=== PATIENT | female | born 1975 | race Caucasian/White ===

== ENCOUNTER 2016-12-28 03:00 | Emergency (ER) | payer OTHER ==
--- NOTE | 2016-12-28 04:23 | ED CLINICAL REPORT ---
Clinical Report - Physicians/Mid Levels [facility] [address] [place] [address] 12/28/2016 3:00 Patient: ABEBE RYDER Time Seen: 03:14. Arrived- By private vehicle. Historian- patient. HISTORY OF PRESENT ILLNESS Chief Complaint: COUGH and FEVER. This started about 3 days ago and is still present. It was gradual in onset and has been waxing/waning. The illness is described as moderate. The patient has had a mild cough . No blood tinged sputum or frankly bloody sputum, nasal congestion, sinus drainage, fever and muscle aches. She has had a nasal discharge. No difficulty breathing or hoarseness. She has had a mild sore throat . It has been associated with pain upon swallowing. No difficulty swallowing. Additional history - The patient has had contact with a sick individual. (influenza epidemic). (Pt states that she has had "low potassium" before and wants this checked.). Similar symptoms previously: Recent medical care: Not recently seen/assessed. REVIEW OF SYSTEMS Last normal menstrual period- Dec 13. Para 4. She has had a mild headache. The headache has been similar to previous ones. No nausea, vomiting, pedal edema, calf pain or difficulty with urination. No skin rash. She has had mild diarrhea. This has occurred several times. It has been watery. No bloody diarrhea. Denies current . All systems otherwise negative, except as recorded above. PAST HISTORY Hypertension. PCP: Dr Floyd. Bronchitis. Hypokalemia (for unclear reasons). Fracture (Rt "below the knee" fracture.). Surgeries: . Tonsillectomy. Medications: None. Allergies: No Known Drug Allergy. SOCIAL HISTORY Never smoker. No alcohol use or drug use. Is a local resident. ADDITIONAL NOTES The nursing notes have been reviewed. PHYSICAL EXAM Vital Signs: 12/28/2016 03:06 BP: 116/71. HR: 110. RR: 20. O2 saturation: 99%. Temp: 100.1 F. Pain level now: 7/10. Appearance: Alert. Patient in mild distress. Eyes: Eyes normal inspection. No scleral icterus. ENT: Nasal discharge present. Mild generalized pharyngeal erythema. No right tonsillar exudate, right tonsillar abscess, right tonsillar swelling, left tonsillar exudate, left tonsillar abscess or left tonsillar swelling. Pharynx normal. No mouth ulcerations, tonsillar exudate, peritonsillar mass or muffled or hoarse voice. Neck: Normal inspection. Neck supple. No JVD. No meningeal signs. No neck stiffness or nuchal rigidity. Negative Brudzinski's sign and Kernig's sign. CVS: Tachycardia. Heart sounds normal. Pulses normal. Respiratory: No respiratory distress. Breath sounds normal. No rales, rhonchi, wheezes or stridor. Abdomen: Soft and nontender. Back: Normal inspection. Skin: Skin warm and dry. Normal skin color. No rash. No petechiae. Normal skin turgor. Extremities: Extremities exhibit normal ROM. No calf tenderness. No lower extremity edema. Neuro: Oriented X 3. No motor deficit. LABS, X-RAYS, AND EKG Chest X-ray: No acute disease. Normal lung markings present. Normal heart size. Mediastinum normal. Great vessels normal. No infiltrate. Views: PA and lateral. Technique: good. The X-rays were interpreted contemporaneously by me. Laboratory Tests: BMP: (IBRAHIMA: 12/28/2016 03:40) ( MsgRcvd 12/28/2016 03:56) Final results Test Result Flag Units (Reference) GLUCOSE 128 H mg/dL (70-110) BUN 5 L mg/dL (7-18) CREATININE 0.8 mg/dL (0.6-1.3) Estimated GFR >60 mL/min Estimated GFR- >60 mL/min Note: Persistent reduction over 3 months in eGFR<60 mL/min/1.73 m2 defines CKD. Patients with eGFR values>=60 mL/min/1.73 m2 may also have CKD if evidence ofpersistent proteinuria. Additional information may be foundat www.kidney.org. SODIUM 136 mmol/L (136-145) POTASSIUM 3.7 mmol/L (3.5-5.1) CHLORIDE 101 mmol/L (98-107) CARBON DIOXIDE 23 mmol/L (21-32) CALCIUM 9.0 mg/dL (8.5-10.1) Culture, Strep Screen: (IBRAHIMA: 12/28/2016 03:20) ( MsgRcvd 12/28/2016 03:39) Final results Test Result Flag Units (Reference) RAPID STREP SCREEN - THROAT CALLED TO: -- DATE: 12/28/16 NEGATIVE SCREEN: RAPID STREP SCREEN NEGATIVE; CONFIRMATION TO FOLLOW Rapid Influenza Screen: (IBRAHIMA: 12/28/2016 03:20) ( MsgRcvd 12/28/2016 03:43) Final results SPECIMEN DESCRIPTION: BONDERITE OPERATOR SWAB Test Result Flag Units (Reference) RAPID INFLUENZA SCREEN CALLED TO: NICOLE ED -- DATE: 12/28/16 INFLUENZA A: NEGATIVE SCREEN FOR INFLUENZA A INFLUENZA B: POSITIVE SCREEN FOR INFLUENZA B . HCG: Urine HCG negative Pulse Oximetry: 12/28/2016 03:06 O2 saturation: 99%. (FIO2 - room air). Interpretation: normal. PROGRESS AND PROCEDURES Course of Care: Normal Saline 1 liter IVPB given. Toradol 15 mg IVP given. All c/w influenza - +flu screen. Symptoms present for over 3 days - Tamiflu not indicated. Patient/family counseled. Old ED records reviewed. Disposition: Discharged. Condition: stable and improved. CLINICAL IMPRESSION Diarrhea Influenza type B with upper respiratory infection and bronchitis. INSTRUCTIONS Do not work for three days. Drink plenty of fluids. No alcohol until released. Warnings: Further evaluation is necessary in order to recheck abnormal lab, obtain test results, conduct further tests and assess the possibility of serious illness. It is very important to follow up with a physician. GENERAL WARNINGS: Return or contact your physician immediately if your condition worsens or changes unexpectedly, if not improving as expected, or if other problems arise. OTC Medications: Acetaminophen (available over the counter): take according to label instructions. Afrin nasal spray (Available over the counter): Take according to label instructions. Motrin (available over the counter): take according to label instructions. Follow-up with: Rolly Floyd MD, [facility], , [facility], [address] [place], [place] [id number] Follow up in two days. (Electronically signed by Douglas Allan DO 12/28/2016 6:23)
--- NOTE | 2016-12-28 04:23 | ED ORDER SUMMARY ---
..... Patient: ABEBE RYDER OrderSheet [facility] VisitID: [id number] [address] [place] [address] 41y, F Registration Date/Time: 12/28/2016 ORDER SHEET Weight: 90.7 kg (estimated) Allergies: No Known Drug Allergy GENERAL ORDERS: Rapid Influenza Screen (Nasal Pharyngeal) (DATA NETWORK ARCHITECT swab) Urgent (03:16 12/28/2016 [facility]) (Ack 3:19 Budegekimana) (3:26 HKone R.N.) BMP Urgent (03:26 12/28/2016 [facility]) (Ack 3:27 Brianekimana) (4:29 CausePlay ER Smooth Plater) Culture, Strep Screen Urgent (03:26 12/28/2016 [facility]) (3:26 HKone R.N.) Chest 2V Urgent (03:27 12/28/2016 [facility]) (Ack 3:28 Gladis) (3:48 CausePlay ER Smooth Plater) POC - Urine hCG (04:27 12/28/2016 [facility] ) (4:54 HKone R.N.) MEDICATION ORDERS: IV FLUIDS: IV NS : initial bolus 1000 mL (1000 mL/hr), then TKO - (NOW) (03:25 12/28/2016 [facility]) (Ack 3:27 HKone R.N.) (4:18 HKone R.N.) Toradol IV 15 mg (NOW) (04:05 12/28/2016 [facility]) (Ack 4:11 HKone R.N.) (4:17 HKone R.N.) ORDER SHEET NOTES: [Electronically signed by Dorothy Stewart R.N. (05:12 12/28/2016)] [Electronically signed by Douglas Allan DO (06:23 12/28/2016)] [Electronically locked/signed by Dorothy Stewart R.N. (05:12 12/28/2016)]
--- NOTE | 2016-12-28 04:23 | ED NURSING NOTES ---
Clinical Report - Nurses [facility] [address] [place] [address] 12/28/2016 3:00 Patient: ABEBE RYDER TRIAGE Triage time 0306. Acuity: LEVEL 4. Chief Complaint: "FLU", FEVER, COUGH and BODY ACHES. --03:12 Dorothy Stewart R.N. 03:06 12/28/16. BP: 116/71. HR: 110. RR: 20 (unlabored). O2 saturation: 99% on room air. Temp: 100.1 F (oral). Pain level now: 05/18. --03:12 Dorothy Stewart R.N. CARLINE COMA SCORE: [place] Coma Scale: 15- eyes open spontaneously (4); best verbal response- oriented x 4 (5); best motor response- obeys commands (6). --03:13 Dorothy Stewart R.N. Weight: 90.7 kg estimated. Height/Length: 66 inches Per Patient. BMI: 32.3. --03:06 Dorothy Stewart R.N. Medications None. --03:07 Dorothy Stewart R.N. Medication/allergy information source: the patient. --03:12 Dorothy Stewart R.N. Allergies No Known Drug Allergy. --03:07 Dorothy Stweart R.N. History Arrived by private vehicle. Historian: patient. Unaccompanied. Primary physician (Mariel). ( pt c/o cough, flu-like symptoms x 3 days.). Onset. (3 days ago). 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 PAST MEDICAL HX: Last normal menstrual period- Dec. Denies current . SOCIAL HX: Never smoker. No alcohol use or drug use. ABUSE ASSESSMENT: No report of abuse. FALL RISK ASSESSMENT: Fall risk assessment completed. No fall risk identified. NUTRITIONAL RISK ASSESSMENT: The nutritional risk assessment revealed no deficiencies. FUNCTIONAL ASSESSMENT: Functional assessment: no impairments noted. LEARNING NEEDS ASSESSMENT: The learning needs assessment revealed no barriers. SKIN INTEGRITY ASSESSMENT: Skin integrity risk assessment completed. No skin integrity risk identified. --03:12 Dorothy Stewart R.N. PROBLEMS: Bronchitis. Rt below knee fracture. Hypertension. --03:08 Dorothy Stewart R.N. ADDITIONAL SURGERIES: . Tonsillectomy. --03:08 Dorothy Stewart R.N. Interventions ID band on patient. To treatment room. --03:12 Dorothy Stewart R.N. PHYSICAL ASSESSMENT 03:15. Ambulatory to room. GENERAL / NEURO / PSYCH: Alert. Oriented X 4. Appears in no acute distress. HEENT: Pupils equal, round and reactive to light. Mucous membranes are pink. RESPIRATORY: Respirations not labored. Cough. SKIN: Skin intact. Skin is dry. Hot skin. Normal skin turgor. --04:30 Dorothy Stewart R.N. NURSING PROGRESS NOTES Patient gowned. Head of bed elevated. Two patient identifiers checked. Call light placed in reach. Side rails up x 1. Bed placed in lowest position. Brakes of bed on. Patient ready for evaluation. --03:13 Dorothy Stewart R.N. ED physician notified. Notified (FLU B +). --03:44 Yusuf Anglin, ER Label Tacker 03:30 12/28/2016 Site #2 started via IV in the right antecubital space with an 20g angiocath; one attempt. --04:17 Dorothy Stewart R.N. 03:40 12/28/2016 Site #1 started via IV in the left antecubital space with an 20g angiocath, with aseptic technique and good blood return; one attempt. Blood drawn: rainbow set. Labeled in the presence of the patient and sent to the lab. Saline lock flushed with 10 mL saline. --03:52 Dorothy Stewart R.N. 03:55 12/28/2016 Site #1 removed. Bandage applied (IV site infiltrated when attempting to start IV fluids.). --03:55 Dorothy Stewart R.N. 03:56 12/28/2016 Started bag #1 1000 mL IV Fluids IV NS (Saline); at 999 mL/hr over 1 hour(s) via site #2 via IV pump. Allergies verified and confirmed 5 rights. IV patency established. IV site checked: no pain, redness, or swelling. IV flushed thoroughly pre- and post-medication administration. --04:18 Dorothy Stewart R.N. 04:17 12/28/2016 Toradol IVP 15 mg given over 1 minute(s) via site #2. Allergies verified and confirmed 5 rights. IV patency established. IV site checked: no pain, redness, or swelling. IV flushed thoroughly pre- and post-medication administration. IVP given by RN. --04:17 Dorothy Stewart R.N. urine test done at bedside - pt is negative. reported to MD. --04:57 Dorothy Stewart R.N. 04:56 12/28/2016 IV Fluids IV NS Discontinued: bag #1 completed upon discharge. Total amount infused: 1000 ml mL. IV patency established. IV site checked: no pain, redness, or swelling. IV flushed thoroughly. --05:12 Dorothy Stewart R.N. DISPOSITION / DISCHARGE Departure time: 0505. Condition at departure: improved. No learning barriers present. Discharge instructions provided and reviewed with the patient. Reviewed medication(s). Prescription(s) given to the patient (Afrin, Motrin, Tylenol). Patient verbalized understanding. Written instructions provided in [place]. The patient was discharged by the physician. She was discharged home and unaccompanied at time of discharge. She left the Emergency Department ambulatory and via private vehicle. Patient driving. Medication list reviewed and validated with the patient. --05:11 Dorothy Stewart R.N. 05:05 12/28/16. BP: 116/72. HR: 89. RR: 18 (unlabored). O2 saturation: 97% on room air. Temp: 99.6 F (oral). Pain level now: 03/18. --05:11 Dorothy Stewart R.N. 05:05 12/28/2016 Site #2 removed upon discharge. Bandage applied. --05:11 Dorothy Stewart R.N. Locked/Released at 12/28/2016 5:12 by Dorothy Stewart R.N.
--- NOTE | 2016-12-28 04:23 | ED CLINICAL REPORT ---
Clinical Report - Physicians/Mid Levels [facility] [address] [place] [address] 12/28/2016 3:00 Patient: ABEBE RYDER Time Seen: 03:14. Arrived- By private vehicle. Historian- patient. HISTORY OF PRESENT ILLNESS Chief Complaint: COUGH and FEVER. This started about 3 days ago and is still present. It was gradual in onset and has been waxing/waning. The illness is described as moderate. The patient has had a mild cough . No blood tinged sputum or frankly bloody sputum, nasal congestion, sinus drainage, fever and muscle aches. She has had a nasal discharge. No difficulty breathing or hoarseness. She has had a mild sore throat . It has been associated with pain upon swallowing. No difficulty swallowing. Additional history - The patient has had contact with a sick individual. (influenza epidemic). (Pt states that she has had "low potassium" before and wants this checked.). Similar symptoms previously: Recent medical care: Not recently seen/assessed. REVIEW OF SYSTEMS Last normal menstrual period- Dec 13. Para 4. She has had a mild headache. The headache has been similar to previous ones. No nausea, vomiting, pedal edema, calf pain or difficulty with urination. No skin rash. She has had mild diarrhea. This has occurred several times. It has been watery. No bloody diarrhea. Denies current . All systems otherwise negative, except as recorded above. PAST HISTORY Hypertension. PCP: Dr Floyd. Bronchitis. Hypokalemia (for unclear reasons). Fracture (Rt "below the knee" fracture.). Surgeries: . Tonsillectomy. Medications: None. Allergies: No Known Drug Allergy. SOCIAL HISTORY Never smoker. No alcohol use or drug use. Is a local resident. ADDITIONAL NOTES The nursing notes have been reviewed. PHYSICAL EXAM Vital Signs: 12/28/2016 03:06 BP: 116/71. HR: 110. RR: 20. O2 saturation: 99%. Temp: 100.1 F. Pain level now: 7/10. Appearance: Alert. Patient in mild distress. Eyes: Eyes normal inspection. No scleral icterus. ENT: Nasal discharge present. Mild generalized pharyngeal erythema. No right tonsillar exudate, right tonsillar abscess, right tonsillar swelling, left tonsillar exudate, left tonsillar abscess or left tonsillar swelling. Pharynx normal. No mouth ulcerations, tonsillar exudate, peritonsillar mass or muffled or hoarse voice. Neck: Normal inspection. Neck supple. No JVD. No meningeal signs. No neck stiffness or nuchal rigidity. Negative Brudzinski's sign and Kernig's sign. CVS: Tachycardia. Heart sounds normal. Pulses normal. Respiratory: No respiratory distress. Breath sounds normal. No rales, rhonchi, wheezes or stridor. Abdomen: Soft and nontender. Back: Normal inspection. Skin: Skin warm and dry. Normal skin color. No rash. No petechiae. Normal skin turgor. Extremities: Extremities exhibit normal ROM. No calf tenderness. No lower extremity edema. Neuro: Oriented X 3. No motor deficit. LABS, X-RAYS, AND EKG Chest X-ray: No acute disease. Normal lung markings present. Normal heart size. Mediastinum normal. Great vessels normal. No infiltrate. Views: PA and lateral. Technique: good. The X-rays were interpreted contemporaneously by me. Laboratory Tests: BMP: (IBRAHIMA: 12/28/2016 03:40) ( MsgRcvd 12/28/2016 03:56) Final results Test Result Flag Units (Reference) GLUCOSE 128 H mg/dL (70-110) BUN 5 L mg/dL (7-18) CREATININE 0.8 mg/dL (0.6-1.3) Estimated GFR >60 mL/min Estimated GFR- >60 mL/min Note: Persistent reduction over 3 months in eGFR<60 mL/min/1.73 m2 defines CKD. Patients with eGFR values>=60 mL/min/1.73 m2 may also have CKD if evidence ofpersistent proteinuria. Additional information may be foundat www.kidney.org. SODIUM 136 mmol/L (136-145) POTASSIUM 3.7 mmol/L (3.5-5.1) CHLORIDE 101 mmol/L (98-107) CARBON DIOXIDE 23 mmol/L (21-32) CALCIUM 9.0 mg/dL (8.5-10.1) Culture, Strep Screen: (IBRAHIMA: 12/28/2016 03:20) ( MsgRcvd 12/28/2016 03:39) Final results Test Result Flag Units (Reference) RAPID STREP SCREEN - THROAT CALLED TO: -- DATE: 12/28/16 NEGATIVE SCREEN: RAPID STREP SCREEN NEGATIVE; CONFIRMATION TO FOLLOW Rapid Influenza Screen: (IBRAHIMA: 12/28/2016 03:20) ( MsgRcvd 12/28/2016 03:43) Final results SPECIMEN DESCRIPTION: SWITCH OPERATOR SWAB Test Result Flag Units (Reference) RAPID INFLUENZA SCREEN CALLED TO: NICOLE ED -- DATE: 12/28/16 INFLUENZA A: NEGATIVE SCREEN FOR INFLUENZA A INFLUENZA B: POSITIVE SCREEN FOR INFLUENZA B . HCG: Urine HCG negative Pulse Oximetry: 12/28/2016 03:06 O2 saturation: 99%. (FIO2 - room air). Interpretation: normal. PROGRESS AND PROCEDURES Course of Care: Normal Saline 1 liter IVPB given. Toradol 15 mg IVP given. All c/w influenza - +flu screen. Symptoms present for over 3 days - Tamiflu not indicated. Patient/family counseled. Old ED records reviewed. Disposition: Discharged. Condition: stable and improved. CLINICAL IMPRESSION Diarrhea Influenza type B with upper respiratory infection and bronchitis. INSTRUCTIONS Do not work for three days. Drink plenty of fluids. No alcohol until released. Warnings: Further evaluation is necessary in order to recheck abnormal lab, obtain test results, conduct further tests and assess the possibility of serious illness. It is very important to follow up with a physician. GENERAL WARNINGS: Return or contact your physician immediately if your condition worsens or changes unexpectedly, if not improving as expected, or if other problems arise. OTC Medications: Acetaminophen (available over the counter): take according to label instructions. Afrin nasal spray (Available over the counter): Take according to label instructions. Motrin (available over the counter): take according to label instructions. Follow-up with: Rolly Floyd MD, [facility], , [facility], [address] [place], [place] [id number] Follow up in two days. (Electronically signed by Douglas Allan DO 12/28/2016 6:23)
--- NOTE | 2016-12-28 04:23 | ED NURSING NOTES ---
Clinical Report - Nurses [facility] [address] [place] [address] 12/28/2016 3:00 Patient: ABEBE RYDER TRIAGE Triage time 0306. Acuity: LEVEL 4. Chief Complaint: "FLU", FEVER, COUGH and BODY ACHES. --03:12 Dorothy Stewart R.N. 03:06 12/28/16. BP: 116/71. HR: 110. RR: 20 (unlabored). O2 saturation: 99% on room air. Temp: 100.1 F (oral). Pain level now: 05/18. --03:12 Dorothy Stewart R.N. CARLINE COMA SCORE: [place] Coma Scale: 15- eyes open spontaneously (4); best verbal response- oriented x 4 (5); best motor response- obeys commands (6). --03:13 Dorothy Stewart R.N. Weight: 90.7 kg estimated. Height/Length: 66 inches Per Patient. BMI: 32.3. --03:06 Dorothy Stewart R.N. Medications None. --03:07 Dorothy Stewart R.N. Medication/allergy information source: the patient. --03:12 Dorothy Stewart R.N. Allergies No Known Drug Allergy. --03:07 Dorothy Stewart R.N. History Arrived by private vehicle. Historian: patient. Unaccompanied. Primary physician (Mariel). ( pt c/o cough, flu-like symptoms x 3 days.). Onset. (3 days ago). 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 PAST MEDICAL HX: Last normal menstrual period- Dec. Denies current . SOCIAL HX: Never smoker. No alcohol use or drug use. ABUSE ASSESSMENT: No report of abuse. FALL RISK ASSESSMENT: Fall risk assessment completed. No fall risk identified. NUTRITIONAL RISK ASSESSMENT: The nutritional risk assessment revealed no deficiencies. FUNCTIONAL ASSESSMENT: Functional assessment: no impairments noted. LEARNING NEEDS ASSESSMENT: The learning needs assessment revealed no barriers. SKIN INTEGRITY ASSESSMENT: Skin integrity risk assessment completed. No skin integrity risk identified. --03:12 Dorothy Stewart R.N. PROBLEMS: Bronchitis. Rt below knee fracture. Hypertension. --03:08 Dorothy Stewart R.N. ADDITIONAL SURGERIES: . Tonsillectomy. --03:08 Dorothy Stewart R.N. Interventions ID band on patient. To treatment room. --03:12 Dorothy Stewart R.N. PHYSICAL ASSESSMENT 03:15. Ambulatory to room. GENERAL / NEURO / PSYCH: Alert. Oriented X 4. Appears in no acute distress. HEENT: Pupils equal, round and reactive to light. Mucous membranes are pink. RESPIRATORY: Respirations not labored. Cough. SKIN: Skin intact. Skin is dry. Hot skin. Normal skin turgor. --04:30 Dorothy Stewart R.N. NURSING PROGRESS NOTES Patient gowned. Head of bed elevated. Two patient identifiers checked. Call light placed in reach. Side rails up x 1. Bed placed in lowest position. Brakes of bed on. Patient ready for evaluation. --03:13 Dorothy Stewart R.N. ED physician notified. Notified (FLU B +). --03:44 Yusuf Anglin, ER Pattern Setter 03:30 12/28/2016 Site #2 started via IV in the right antecubital space with an 20g angiocath; one attempt. --04:17 Dorothy Stewart R.N. 03:40 12/28/2016 Site #1 started via IV in the left antecubital space with an 20g angiocath, with aseptic technique and good blood return; one attempt. Blood drawn: rainbow set. Labeled in the presence of the patient and sent to the lab. Saline lock flushed with 10 mL saline. --03:52 Dorothy Stewart R.N. 03:55 12/28/2016 Site #1 removed. Bandage applied (IV site infiltrated when attempting to start IV fluids.). --03:55 Dorothy Stewart R.N. 03:56 12/28/2016 Started bag #1 1000 mL IV Fluids IV NS (Saline); at 999 mL/hr over 1 hour(s) via site #2 via IV pump. Allergies verified and confirmed 5 rights. IV patency established. IV site checked: no pain, redness, or swelling. IV flushed thoroughly pre- and post-medication administration. --04:18 Dorothy Stewart R.N. 04:17 12/28/2016 Toradol IVP 15 mg given over 1 minute(s) via site #2. Allergies verified and confirmed 5 rights. IV patency established. IV site checked: no pain, redness, or swelling. IV flushed thoroughly pre- and post-medication administration. IVP given by RN. --04:17 Dorothy Stewart R.N. urine test done at bedside - pt is negative. reported to MD. --04:57 Dorothy Stewart R.N. 04:56 12/28/2016 IV Fluids IV NS Discontinued: bag #1 completed upon discharge. Total amount infused: 1000 ml mL. IV patency established. IV site checked: no pain, redness, or swelling. IV flushed thoroughly. --05:12 Dorothy Stewart R.N. DISPOSITION / DISCHARGE Departure time: 0505. Condition at departure: improved. No learning barriers present. Discharge instructions provided and reviewed with the patient. Reviewed medication(s). Prescription(s) given to the patient (Afrin, Motrin, Tylenol). Patient verbalized understanding. Written instructions provided in Dutch. The patient was discharged by the physician. She was discharged home and unaccompanied at time of discharge. She left the Emergency Department ambulatory and via private vehicle. Patient driving. Medication list reviewed and validated with the patient. --05:11 Dorothy Stewart R.N. 05:05 12/28/16. BP: 116/72. HR: 89. RR: 18 (unlabored). O2 saturation: 97% on room air. Temp: 99.6 F (oral). Pain level now: 03/18. --05:11 Dorothy Stewart R.N. 05:05 12/28/2016 Site #2 removed upon discharge. Bandage applied. --05:11 Dorothy Stewart R.N. Locked/Released at 12/28/2016 5:12 by Dorothy Stewart R.N.
--- NOTE | 2016-12-28 04:23 | ED ORDER SUMMARY ---
..... Patient: ABEBE RYDER OrderSheet [facility] VisitID: [id number] [address] [place] [address] 41y, F Registration Date/Time: 12/28/2016 ORDER SHEET Weight: 90.7 kg (estimated) Allergies: No Known Drug Allergy GENERAL ORDERS: Rapid Influenza Screen (Nasal Pharyngeal) (HATCH TENDER swab) Urgent (03:16 12/28/2016 [facility]) (Ack 3:19 Budegekimana) (3:26 HKone R.N.) BMP Urgent (03:26 12/28/2016 [facility]) (Ack 3:27 Brianekimana) (4:29 [facility]) Culture, Strep Screen Urgent (03:26 12/28/2016 [facility]) (3:26 HKone R.N.) Chest 2V Urgent (03:27 12/28/2016 [facility]) (Ack 3:28 Gladis) (3:48 [facility]) POC - [facility]rine hCG [facility]04[facility]27 [facility] (4:54 HKone R.N.) MEDICATION ORDERS: IV FLUIDS: IV NS : initial bolus 1000 mL (1000 mL/hr), then TKO - (NOW) (03:25 12/28/2016 [facility]) (Ack 3:27 HKone R.N.) (4:18 HKone R.N.) Toradol IV 15 mg (NOW) (04:05 12/28/2016 [facility]) (Ack 4:11 HKone R.N.) (4:17 HKone R.N.) ORDER SHEET NOTES: [Electronically signed by Dorothy Stewart R.N. (05:12 12/28/2016)] [Electronically signed by Douglas Allan DO (06:23 12/28/2016)] [Electronically locked/signed by Dorothy Stewart R.N. (05:12 12/28/2016)]
--- NOTE | 2016-12-28 06:24 | ED MED RECONCILIATION SUMMARY ---
Patient: ABEBE RYDER Medication Reconciliation Report [facility] VisitID: [id number] [address] [place] [address] 41y, F Registration Date/Time: 12/28/2016 Weight: 90.7 kg Height/Length: 66 in. BMI: 32.3 ALLERGIES: No Known Drug Allergy The patient's Home Medications are listed below: NONE. The source(s) of the original Home Medication information: patient The following Medications were given to the patient in the Emergency Department: Toradol [IVP] IVP 15 mg, administered: 12/28/2016 4:17:00 AM IV NS IV Fluids bolus 0, then 999 mL/hr, administered: 12/28/2016 3:56:00 AM The following Medications were prescribed to the patient: Acetaminophen (available over the counter): take according to label instructions. -- Douglas Allan DO Afrin nasal spray (Available over the counter): Take according to label instructions. -- Douglas Allan DO Motrin (available over the counter): take according to label instructions. -- Douglas Allan DO
--- NOTE | 2016-12-28 06:24 | ED MAR SUMMARY ---
..... Medication Administration Record [facility] [address] [place] [address] Patient: ABEBE RYDER Visit ID: [id number] 41y, F Weight: 90.7 kg Height/Length: 66 in BMI: 32.3 ALLERGIES: No Known Drug Allergy Start 03:56 12/28/2016 Dorothy Stewart R.N., Stop 04:56 12/28/2016 Dorothy Stewart R.N. Medication Administered: IV NS (SALINE), Dose: IV Fluids over 1 hour(s), Rate: 999 mL/hr, Dispensed: 1000 mL bag, Site: #2 right AC. Medication Ordered: IV NS : initial bolus 1000 mL (1000 mL/hr), then TKO - (NOW). Given 04:17 12/28/2016 Dorothy Stewart RErickN. Medication Administered: TORADOL [IVP], Dose: 15 mg IVP over 1 minute(s), Site: #2 right AC. Medication Ordered: Toradol IV 15 mg (NOW).
--- NOTE | 2016-12-28 06:24 | ED DISCHARGE INSTRUCTIONS ---
Patient: ABEBE RYDER General Instructions [facility] VisitID: [id number] [address] [place] [address] 41y, F Registration Date/Time: 12/28/2016 Diarrhea Influenza type B with upper respiratory infection and bronchitis. INSTRUCTIONS Do not work for three days. Drink plenty of fluids. No alcohol until released. Warnings: Further evaluation is necessary in order to recheck abnormal lab, obtain test results, conduct further tests and assess the possibility of serious illness. It is very important to follow up with a physician. GENERAL WARNINGS: Return or contact your physician immediately if your condition worsens or changes unexpectedly, if not improving as expected, or if other problems arise. OTC Medications: Acetaminophen (available over the counter): take according to label instructions. Afrin nasal spray (Available over the counter): Take according to label instructions. Motrin (available over the counter): take according to label instructions. Follow-up with: Rolly Floyd MD, [facility], , [facility], [address] [place] [address] Follow up in two days. ADDITIONAL INFORMATION Influenza (Adult) Influenza, also called the flu, is a viral illness that affects the air passages of the lungs. It differs from the common cold. It is highly contagious. It may be spread through the air by coughing and sneezing or by direct contact (touching the sick person and then touching your own eyes, nose or mouth). Illness starts 1-3 days after exposure and lasts for 1-2 weeks. Antibiotics are usually not needed unless a complication appears (ear or sinus infection or pneumonia). Symptoms may be mild or severe and can include extreme tiredness (wanting to stay in bed all day), chills, fevers, muscle aching, soreness with eye movement, headache, and a dry, hacking cough. Home Care: Avoid exposure to cigarette smoke (yours or others). Tylenol or ibuprofen (Advil) will help fever, muscle aching, and headache. To avoid risk of liver injury, aspirin should not be used in children and teenagers under 18 with this illness. Nausea and loss of appetite are common. A light diet is recommended. Avoid dehydration by drinking 6-8 glasses of fluids per day (water, sport drinks like Gatorade, soft drinks without caffeine, juices, tea, soup, etc.). Extra fluids will also help loosen secretions in the nose and lungs. Xuwe-srh-zejipyd cold medicines will not shorten the duration of the illness but may be helpful for the following symptoms: cough (Robitussin DM); sore throat (Chloraseptic lozenges or spray); nasal and sinus congestion (Actifed or Sudafed). [NOTE: Do not use decongestants if you have high blood pressure.] Stay home until your fever has been gone for at least 24 hours (without the use of fever-reducing medications such as ibuprofen). Follow Up with your doctor or as directed by our staff if you are not improving over the next week. Note: If you are age 65 or older, or if you have chronic asthma or COPD, we recommend a pneumococcal vaccinationevery five years. All adults shouldreceive a yearly influenza vaccination every . Ask your doctor about this. Get Prompt Medical Attention if any of the following occur: Cough with lots of colored sputum (mucus) or blood in your sputum Chest pain, shortness of breath, wheezing, or difficulty breathing Severe headache, face, neck or ear pain New rash Fever of 100.4F (38C) oral or higher, not better with fever medication Confusion, behavior change or seizure Severe weakness or dizziness Diarrhea [Adult, Viral] Diarrhea is usually due to viral gastroenteritis, another name for the "stomach flu." This virus affects the stomach and intestinal tract and usually lasts 2 to 7 days. The main danger from repeated diarrhea is dehydration -- the loss of excess water and minerals from the body. Antibiotics are not effective in this illness, but simple home treatment will be helpful. Home Care: If symptoms are severe, rest at home for the next 24 hours or until you are feeling better. You may use acetaminophen (Tylenol) or ibuprofen (Motrin, Advil) to control fever unless another medicine was prescribed. [ NOTE : If you have chronic liver or kidney disease or ever had a stomach ulcer or GI bleeding, talk with your doctor before using these medicines.] (Aspirin should never be used in anyone under 18 years of age who is ill with a fever. It may cause severe liver damage.) Avoid tobacco, caffeine and alcohol, which may worsen your symptoms. If anti-diarrhea medicine was prescribed, take this only as directed. Sometimes anti-diarrhea medicine can make your condition worse if the cause is an infectious diarrhea. Therefore, anti-diarrhea medicine should not be taken for this condition unless advised by your doctor. During The First 12-24 Hours follow the diet below: BEVERAGES: Sport drinks like Gatorade, soft drinks without caffeine; tung evie, mineral water (plain or flavored), decaffeinated tea and coffee. SOUPS: Clear broth, consomm and bouillon DESSERTS: Plain gelatin (Jell-O), popsicles and fruit juice bars. During The Next 24 Hours you may add the following to the above: Hot cereal, plain toast, bread, rolls, crackers Plain noodles, rice, mashed potatoes, chicken noodle or rice soup Unsweetened canned fruit (avoid pineapple), bananas Limit fat intake to less than 15 grams per day by avoiding margarine, butter, oils, mayonnaise, sauces, gravies, fried foods, peanut butter, meat, poultry and fish. Limit fiber; avoid raw or cooked vegetables, fresh fruits (except bananas) and bran cereals. Limit caffeine and chocolate. No spices or seasonings except salt. During The Next 24 Hours Gradually resume a normal diet, as you feel better and your symptoms lessen. Follow Up with your doctor as advised. Call if not improving within 24 hours or if diarrhea lasts more than one week. If a stool (diarrhea) sample was taken, you may call in 2 days (or as directed) for the results. Get Prompt Medical Attention if any of the following occur: Increasing abdominal pain or constant lower right abdominal pain Continued vomiting (unable to keep liquids down) Frequent diarrhea (more than 5 times a day) Blood in vomit or stool (black or red color) Reduced oral intake Dark urine, reduced urine output Weakness, dizziness, fainting Drowsiness, confusion, stiff neck or seizure Fever of 100.4F (38C) oral or higher, not better with fever medication New rash Acetaminophen Oral tablet What is this medicine? ACETAMINOPHEN (a set a KENAN francisco javier fen) is a pain reliever. It is used to treat mild pain and fever. How should I use this medicine? Take this medicine by mouth with a glass of water. Follow the directions on the package or prescription label. Take your medicine at regular intervals. Do not take your medicine more often than directed. Talk to your certified ethical hacker regarding the use of this medicine in children. While this drug may be prescribed for children as young as 6 years of age for selected conditions, precautions do apply. What side effects may I notice from receiving this medicine? Side effects that you should report to your doctor or health long term care pharmacist as soon as possible: allergic reactions like skin rash, itching or hives, swelling of the face, lips, or tongue breathing problems fever or sore throat redness, blistering, peeling or loosening of the skin, including inside the mouth trouble passing urine or change in the amount of urine unusual bleeding or bruising unusually weak or tired yellowing of the eyes or skin Side effects that usually do not require medical attention (report to your doctor or health long term care pharmacist if they continue or are bothersome): headache nausea, stomach upset What may interact with this medicine? alcohol imatinib isoniazid other medicines with acetaminophen What if I miss a dose? If you miss a dose, take it as soon as you can. If it is almost time for your next dose, take only that dose. Do not take double or extra doses. Where should I keep my medicine? Keep out of reach of children. Store at room temperature between 20 and 25 degrees C (68 and 77 degrees F). Protect from moisture and heat. Throw away any unused medicine after the expiration date. What should I tell my health care provider before I take this medicine? They need to know if you have any of these conditions: if you frequently drink alcohol containing drinks liver disease an unusual or allergic reaction to acetaminophen, other medicines, foods, dyes or preservatives or trying to get breast-feeding What should I watch for while using this medicine? Tell your doctor or health long term care pharmacist if the pain lasts more than 10 days (5 days for children), if it gets worse, or if there is a new or different kind of pain. Also, check with your doctor if a fever lasts for more than 3 days. Do not take other medicines that contain acetaminophen with this medicine. Always read labels carefully. If you have questions, ask your doctor or pharmacist. If you take too much acetaminophen get medical help right away. Too much acetaminophen can be very dangerous and cause liver damage. Even if you do not have symptoms, it is important to get help right away. Ibuprofen Oral tablet What is this medicine? IBUPROFEN (eye BYOO proe fen) is a non-steroidal anti-inflammatory drug (NSAID). It is used for dental pain, fever, headaches or migraines, osteoarthritis, rheumatoid arthritis, or painful monthly periods. It can also relieve minor aches and pains caused by a cold, flu, or sore throat. How should I use this medicine? Take this medicine by mouth with a glass of water. Follow the directions on the prescription label. Take this medicine with food if your stomach gets upset. Try to not lie down for at least 10 minutes after you take the medicine. Take your medicine at regular intervals. Do not take your medicine more often than directed. A special MedGuide will be given to you by the pharmacist with each prescription and refill. Be sure to read this information carefully each time. Talk to your certified ethical hacker regarding the use of this medicine in children. Special care may be needed. What side effects may I notice from receiving this medicine? Side effects that you should report to your doctor or health long term care pharmacist as soon as possible: allergic reactions like skin rash, itching or hives, swelling of the face, lips, or tongue black or bloody stools, blood in the urine or in vomit breathing problems changes in vision chest pain general ill feeling or flu-like symptoms nausea or vomiting redness, blistering, peeling or loosening of the skin, including inside the mouth slurred speech or weakness on one side of the body stomach pain unexplained weight gain or swelling unusually weak or tired yellowing of eyes or skin Side effects that usually do not require medical attention (report to your doctor or health long term care pharmacist if they continue or are bothersome): constipation or diarrhea dizziness gas or heartburn stomach upset What may interact with this medicine? Do not take this medicine with any of the following medications: cidofovir ketorolac methotrexate pemetrexed This medicine may also interact with the following medications: alcohol aspirin diuretics lithium other drugs for inflammation like prednisone warfarin What if I miss a dose? If you miss a dose, take it as soon as you can. If it is almost time for your next dose, take only that dose. Do not take double or extra doses. Where should I keep my medicine? Keep out of the reach of children. Store at room temperature between 15 and 30 degrees C (59 and 86 degrees F). Keep container tightly closed. Throw away any unused medicine after the expiration date. What should I tell my health care provider before I take this medicine? They need to know if you have any of these conditions: asthma cigarette smoker drink more than 3 alcohol containing drinks a day heart disease or circulation problems such as heart failure or leg edema (fluid retention) high blood pressure kidney disease liver disease stomach bleeding or ulcers an unusual or allergic reaction to ibuprofen, aspirin, other NSAIDS, other medicines, foods, dyes, or preservatives or trying to get breast-feeding What should I watch for while using this medicine? Tell your doctor or healthcare professional if your symptoms do not start to get better or if they get worse. This medicine does not prevent heart attack or stroke. In fact, this medicine may increase the chance of a heart attack or stroke. The chance may increase with longer use of this medicine and in people who have heart disease. If you take aspirin to prevent heart attack or stroke, talk with your doctor or health long term care pharmacist. Do not take other medicines that contain aspirin, ibuprofen, or naproxen with this medicine. Side effects such as stomach upset, nausea, or ulcers may be more likely to occur. Many medicines available without a prescription should not be taken with this medicine. This medicine can cause ulcers and bleeding in the stomach and intestines at any time during treatment. Ulcers and bleeding can happen without warning symptoms and can cause . To reduce your risk, do not smoke cigarettes or drink alcohol while you are taking this medicine. You may get drowsy or dizzy. Do not drive, use machinery, or do anything that needs mental alertness until you know how this medicine affects you. Do not stand or sit up quickly, especially if you are an older patient. This reduces the risk of dizzy or fainting spells. This medicine can cause you to bleed more easily. Try to avoid damage to your teeth and gums when you brush or floss your teeth. You have been given the following additional information: Influenza (Adult) Diarrhea, Viral (Child) (Adult) Acetaminophen Oral tablet Ibuprofen Oral tablet Do not work for three days. (Electronically signed by Douglas Allan DO 12/28/2016 6:23)
--- NOTE | 2016-12-28 06:24 | ED MAR SUMMARY ---
..... Medication Administration Record [facility] [address] [place] [address] Patient: ABEBE RYDER Visit ID: [id number] 41y, F Weight: 90.7 kg Height/Length: 66 in BMI: 32.3 ALLERGIES: No Known Drug Allergy Start 03:56 12/28/2016 Dorothy Stewart R.N., Stop 04:56 12/28/2016 Dorothy Stewart R.N. Medication Administered: IV NS (SALINE), Dose: IV Fluids over 1 hour(s), Rate: 999 mL/hr, Dispensed: 1000 mL bag, Site: #2 right AC. Medication Ordered: IV NS : initial bolus 1000 mL (1000 mL/hr), then TKO - (NOW). Given 04:17 12/28/2016 Dorothy Stewart RErickN. Medication Administered: TORADOL [IVP], Dose: 15 mg IVP over 1 minute(s), Site: #2 right AC. Medication Ordered: Toradol IV 15 mg (NOW).
--- NOTE | 2016-12-28 06:24 | ED MED RECONCILIATION SUMMARY ---
Patient: ABEBE RYDER Medication Reconciliation Report [facility] VisitID: [id number] [address] [place] [address] 41y, F Registration Date/Time: 12/28/2016 Weight: 90.7 kg Height/Length: 66 in. BMI: 32.3 ALLERGIES: No Known Drug Allergy The patient's Home Medications are listed below: NONE. The source(s) of the original Home Medication information: patient The following Medications were given to the patient in the Emergency Department: Toradol [IVP] IVP 15 mg, administered: 12/28/2016 4:17:00 AM IV NS IV Fluids bolus 0, then 999 mL/hr, administered: 12/28/2016 3:56:00 AM The following Medications were prescribed to the patient: Acetaminophen (available over the counter): take according to label instructions. -- Douglas Allan DO Afrin nasal spray (Available over the counter): Take according to label instructions. -- Douglas Allan DO Motrin (available over the counter): take according to label instructions. -- Douglas Allan DO
--- NOTE | 2016-12-28 06:55 | DIAGNOSTIC IMAGING REPORT ---
PROCEDURE: XR CHEST 2 VIEW INDICATION: COUGH TECHNIQUE: PA and lateral views. COMPARISON: None. FINDINGS: There is minor atelectasis or scarring at the left posterior and lateral lung base. Lungs are otherwise clear. Heart and mediastinum are normal. Thorax is normal. IMPRESSION: 1. Minor scarring or atelectasis at the left lung base. 2. Otherwise negative chest. 3. Findings discussed with Dr. Allan.
== END 2016-12-28 05:05 | disposition home or self-care (01) ==
LOC: ED SRH 03:00
DX: J10.1 Influenza due to other identified influenza virus with other respiratory manifestations (principal); R19.7 Diarrhea, unspecified; I10 Essential (primary) hypertension
CPT/HCPCS: 90047; 90154; 90159; 91400

== ENCOUNTER 2017-03-05 13:02 | Outpatient (CLI) | payer OTHER ==
--- NOTE | 2017-03-05 14:17 | DIAGNOSTIC IMAGING REPORT ---
PROCEDURE: US COMPLETE PELVIC W/TRANSVAG INDICATION: PELVIC PAIN TECHNIQUE: Transabdominal and endovaginal guillermo scale and color Doppler sonographic images of the female pelvis were obtained. COMPARISON: None. FINDINGS: No gestational sac or intrauterine . TRANSABDOMINAL SCANS: The uterus is of normal size 10.4 x 7.9 x 6 cm Kidneys are normal. TRANSVAGINAL SCANS: The uterus is anteverted. Myometrium is normal. The endometrium measures 27 mm and is thick and heterogeneous. Right ovary is normal measuring 4 x 2.3 x 2.8 cm and contains a 2 cm follicle. The left ovary is normal measuring 3.3 x 2.2 x 2.9 cm IMPRESSION: 1. No evidence of gestational sac or intrauterine .
== END 2017-03-05 23:00 ==
LOC: US SRH 13:02
DX: Z32.02 Encounter for pregnancy test, result negative (principal)